=== PATIENT | female | born 1950 | race Caucasian/White ===

== ENCOUNTER 2018-12-22 16:30 | Emergency (ER) | payer BC, OTHER ==
[~2018-12-22] VITALS: Ht 162.6 cm; Wt 90.7 kg
[2018-12-22 16:38] VITALS: BP_SYST 115
[2018-12-22] MEDS ORDERED: METO-442 GT (16:46)
[2018-12-22] MEDS ORDERED: OMEP20CA10 GT (16:46)
[2018-12-22] MEDS ORDERED: HYG25 GT (16:46)
[2018-12-22] MEDS ORDERED: CHLO473M12 MM (16:46)
[2018-12-22] MEDS ORDERED: LIP40 GT (16:46)
[2018-12-22] MEDS ORDERED: CHLO118L TP (16:46)
[2018-12-22] MEDS ORDERED: ATEN50TA GT (16:46)
[2018-12-22] MEDS ORDERED: LACT1CAP7 GT (16:46)
[2018-12-22] MEDS ORDERED: LEVE500T53 GT (16:46)
[2018-12-22] MEDS ORDERED: ASA81 PO (16:46)
[2018-12-22 20:30] VITALS: BP_SYST 134
== END 2018-12-22 20:35 | disposition home or self-care (01) ==
LOC: SED 16:30
DX: S00.83XA Contusion of other part of head, initial encounter (principal); J45.909 Unspecified asthma, uncomplicated; I10 Essential (primary) hypertension; E78.5 Hyperlipidemia, unspecified; F41.9 Anxiety disorder, unspecified; Z86.73 Personal history of transient ischemic attack (TIA), and cerebral infarction without residual deficits; Z88.8 Allergy status to other drugs, medicaments and biological substances; Z79.899 Other long term (current) drug therapy; W19.XXXA Unspecified fall, initial encounter; Y93.89 Activity, other specified; Y92.89 Other specified places as the place of occurrence of the external cause; Y99.8 Other external cause status
CPT/HCPCS: 70450-TC; 72125-TC; 99284

== ENCOUNTER 2018-12-31 00:39 | Emergency (ER) | payer BC ==
[~2018-12-31] VITALS: Ht 162.6 cm; Wt 90.7 kg
[2018-12-31 00:39] VITALS: BP_SYST 120
[~2018-12-31 00:39] MED LIST: ASA81 GT; ATEN50TA GT; CHLO118L TP; CHLO473M12 MM; HYG25 GT; LACT1CAP7 GT; LEVE500T53 GT; LIP40 GT; METO-442 GT; OMEP20CA11 GT
[2018-12-31 01:59] LABS: BASOPHILS % (AUTO) 0.2 % (0.0-2.0); EOSINOPHILS % (AUTO) 0.3 % (0.0-4.0); HEMATOCRIT 30.7 % (36-48); HEMOGLOBIN 10.2 g/dL (12.0-16.0); LYMPHOCYTES # (AUTO) 1.1 K/uL (1.0-5.5); LYMPHOCYTES % (AUTO) 13.6 % (20.5-51.5); MEAN CORPUSCULAR HEMOGLOBIN 28 pg (27-31); MEAN CORPUSCULAR HGB CONC 33 % (32-36); MEAN CORPUSCULAR VOLUME 85 fL (79.0-98.0); MONOCYTES # (AUTO) 0.4 K/uL (0.0-1.0); MONOCYTES % (AUTO) 4.9 % (1.7-9.3); NEUTROPHILS # (AUTO) 6.3 K/uL (1.8-7.7); PLATELET COUNT (AUTO) 180 K/uL (130-430); RED BLOOD CELL COUNT(AUTO) 3.62 MIL/uL (4.2-6.2); RED CELL DISTRIBUTION WIDTH 15.4 % (9.0-15.0); WHITE BLOOD COUNT (AUTO) 7.8 K/uL (4.8-10.8)
[2018-12-31 02:19] LABS: CALCIUM 9.3 mg/dL (8.4-11.0); CREATININE 0.56 mg/dL (0.55-1.30); POTASSIUM 3.3 mmol/L (3.5-5.1)
[2018-12-31] MEDS ORDERED: ACET650S22 GT (02:19)
[2018-12-31 02:20] LABS: INR 1.1 (0.8-1.2); PROTHROMBIN TIME 11.2 SECS (9.5-12.5)
[2018-12-31] MEDS ORDERED: DOCU-144 GT (02:20)
[2018-12-31] MEDS ORDERED: UTI STAT GT (02:21)
[2018-12-31 02:33] LABS: THYROID STIMULATING HORMONE 0.37 uIu/mL (0.36-3.74); TOTAL BILIRUBIN 0.5 mg/dL (0.0-1.0)
[2018-12-31] MEDS ORDERED: MECLIZINE HCL 25 MG TABLET (ANITVERT) GT ONE (03:15)
[2018-12-31] MEDS ORDERED: METOCLOPRAMIDE HCL 10 MG/2 ML VIAL IVP ONE (03:15)
[2018-12-31 06:00] VITALS: BP_SYST 120
== END 2018-12-31 06:00 | disposition home or self-care (01) ==
LOC: SED 00:39
DX: R11.10 Vomiting, unspecified (principal); R42 Dizziness and giddiness; J45.909 Unspecified asthma, uncomplicated; I10 Essential (primary) hypertension; E78.5 Hyperlipidemia, unspecified; F41.9 Anxiety disorder, unspecified; Z88.8 Allergy status to other drugs, medicaments and biological substances; Z86.73 Personal history of transient ischemic attack (TIA), and cerebral infarction without residual deficits
CPT/HCPCS: 36415; 70450; 71045; 80053; 83605; 83690; 84443; 84484; 85025; 85610; 85730; 93005; 96374; 99284; J2765; J8597; 99283

== ENCOUNTER 2019-02-10 12:41 | Emergency (ER) | payer BC ==
[~2019-02-10] VITALS: Ht 157.5 cm; Wt 70.3 kg
[~2019-02-10 12:41] MED LIST changes: +ACET650S22 GT; -CHLO118L TP; +DOCU-144 GT; +UTI STAT GT
[2019-02-10 12:45] VITALS: BP_SYST 147
[2019-02-10 13:25] LABS: BILIRUBIN,URINE NEGATIVE (NEGATIVE); BLOOD, URINE NEGATIVE (NEGATIVE); CLARITY/URINE TURBID (CLEAR); COLOR,URINE YELLOW (YELLOW); GLUCOSE,URINE NEGATIVE (NEGATIVE); KETONES,URINE NEGATIVE (NEGATIVE); LEUKOCYTE ESTERASE ,URINE 2+ (NEGATIVE); NITRITE, URINE NEGATIVE (NEGATIVE); PROTEIN URINE NEGATIVE (NEGATIVE)
[2019-02-10 13:33] LABS: BACTERIA,URINE MANY /HPF (None Seen); RBC,URINE 0-3 /HPF (0-3)
[2019-02-10] MEDS ORDERED: NACL 0.9% 1,000 ML IV ONE (14:15)
[2019-02-10] MEDS ORDERED: PIPERACILLIN/TAZO 3.375 GM in NS 50 ML IV ONE (14:15)
[2019-02-10 14:20] LABS: BASOPHILS # (AUTO) 0.1 K/uL (0.0-0.2); BASOPHILS % (AUTO) 0.6 % (0.0-2.0); EOSINOPHILS # (AUTO) 0.3 K/uL (0.0-0.4); EOSINOPHILS % (AUTO) 4.4 % (0.0-4.0); HEMATOCRIT 32.4 % (36-48); HEMOGLOBIN 10.7 g/dL (12.0-16.0); LYMPHOCYTES # (AUTO) 1.1 K/uL (1.0-5.5); LYMPHOCYTES % (AUTO) 13.7 % (20.5-51.5); MEAN CORPUSCULAR HEMOGLOBIN 28 pg (27-31); MEAN CORPUSCULAR HGB CONC 33 % (32-36); MEAN CORPUSCULAR VOLUME 85 fL (79.0-98.0); MONOCYTES # (AUTO) 0.5 K/uL (0.0-1.0); MONOCYTES % (AUTO) 6.1 % (1.7-9.3); NEUTROPHILS % (AUTO) 75.2 % (40.0-70.0); PLATELET COUNT (AUTO) 175 K/uL (130-430); WHITE BLOOD COUNT (AUTO) 7.9 K/uL (4.8-10.8)
[2019-02-10 14:37] LABS: CALCIUM 8.4 mg/dL (8.4-11.0); CREATININE 0.63 mg/dL (0.55-1.30); POTASSIUM 3.9 mmol/L (3.5-5.1)
[2019-02-10 14:43] LABS: ALBUMIN 2.8 g/dL (3.4-4.8); TOTAL BILIRUBIN 0.3 mg/dL (0.0-1.0)
[2019-02-10 15:02] LABS: INR 1.1 (0.8-1.2); PROTHROMBIN TIME 10.9 SECS (9.5-12.5)
[2019-02-10 15:17] VITALS: BP_SYST 147
== END 2019-02-10 15:13 | disposition short-term general hospital (02) ==
LOC: SED 12:41
DX: I61.8 Other nontraumatic intracerebral hemorrhage (principal); N39.0 Urinary tract infection, site not specified; D64.9 Anemia, unspecified; J45.909 Unspecified asthma, uncomplicated; I10 Essential (primary) hypertension; F41.9 Anxiety disorder, unspecified; Z88.8 Allergy status to other drugs, medicaments and biological substances; Z79.82 Long term (current) use of aspirin; Z79.899 Other long term (current) drug therapy
CPT/HCPCS: 36415; 70450; 71045; 80053; 81000; 83605; 84484; 85025; 85610; 85730; 87040; 87086; 87186; 93005; 94640; 96365; 99291; 99292; J2543

== ENCOUNTER 2019-03-21 16:06 | Inpatient (IN) | payer BC, MEDICAID ==
[~2019-03-21] VITALS: Ht 162.6 cm; Wt 78.9 kg
[2019-03-21 16:20] VITALS: BP_SYST 144
--- NOTE | 2019-03-21 16:25 | NUR ---
Placed in room 1. Placed on monitoring tech, blood pressure machine and pulse oximeter. To gown for exam. Side rails up.
--- NOTE | 2019-03-21 16:26 | NUR ---
Patient brought in by ambulance from [facility] for bleeding trach. Trach bleed is controlled, ruptured vessel in right eye noted. Patient is nonverbal, bedbound, vent dependent.
--- NOTE | 2019-03-21 16:40 | NUR ---
PT CONNECTED TO VENT AT 1620 VIA SETTING AC 14 400 +6 28%, SETTING PROVIDED BY TRANSPORT TEAM. SPUTUM COLLECTED AND SENT TO LAB AT 1640 . ABDOULAYE BECKER MADE AWARE.
[2019-03-21 17:30] LABS: BASOPHILS % (AUTO) 0.6 % (0.0-2.0); EOSINOPHILS # (AUTO) 0.5 K/uL (0.0-0.4); EOSINOPHILS % (AUTO) 6.7 % (0.0-4.0); HEMATOCRIT 29.6 % (36-48); HEMOGLOBIN 9.8 g/dL (12.0-16.0); LYMPHOCYTES # (AUTO) 1.2 K/uL (1.0-5.5); LYMPHOCYTES % (AUTO) 16.3 % (20.5-51.5); MEAN CORPUSCULAR HEMOGLOBIN 28 pg (27-31); MEAN CORPUSCULAR HGB CONC 33 % (32-36); MEAN CORPUSCULAR VOLUME 85 fL (79.0-98.0); MONOCYTES # (AUTO) 0.5 K/uL (0.0-1.0); MONOCYTES % (AUTO) 7.2 % (1.7-9.3); NEUTROPHILS # (AUTO) 5.1 K/uL (1.8-7.7); NEUTROPHILS % (AUTO) 69.2 % (40.0-70.0); PLATELET COUNT (AUTO) 155 K/uL (130-430); RED CELL DISTRIBUTION WIDTH 16.3 % (9.0-15.0); WHITE BLOOD COUNT (AUTO) 7.4 K/uL (4.8-10.8)
[2019-03-21 17:43] LABS: CALCIUM 8.8 mg/dL (8.4-11.0); CREATININE 0.5 mg/dL (0.55-1.30); POTASSIUM 3.5 mmol/L (3.5-5.1)
[2019-03-21 17:45] LABS: PROTHROMBIN TIME 10.5 SECS (9.5-12.5)
[2019-03-21] MEDS ORDERED: ATOR20TA64 GT (17:49)
[2019-03-21] MEDS ORDERED: PRIM50TA27 GT (17:49)
[2019-03-21] MEDS ORDERED: LEVE1000 GT (17:49)
[2019-03-21] MEDS ORDERED: MODA100T53 PO (17:49)
[2019-03-21] MEDS ORDERED: LOSA25TA3 GT (17:49)
[2019-03-21] MEDS ORDERED: LABE100T5 GT (17:49)
--- NOTE | 2019-03-21 17:50 | NUR ---
Medication reconciliation completed with information provided by Christoph Pike. Any prior medication reconciliation on file was reviewed and corrected.
[2019-03-21 17:57] LABS: ALBUMIN 2.8 g/dL (3.4-4.8); TOTAL BILIRUBIN 0.1 mg/dL (0.0-1.0)
[2019-03-21] MEDS ORDERED: SODIUM CL 3% FOR INHALATION 15 ML VIAL.NEB INH ONE (18:00)
[2019-03-21 18:16] LABS: BILIRUBIN,URINE NEGATIVE (NEGATIVE); BLOOD, URINE NEGATIVE (NEGATIVE); CLARITY/URINE SL CLOUDY (CLEAR); COLOR,URINE YELLOW (YELLOW); GLUCOSE,URINE NEGATIVE (NEGATIVE); KETONES,URINE NEGATIVE (NEGATIVE); LEUKOCYTE ESTERASE ,URINE 3+ (NEGATIVE); NITRITE, URINE NEGATIVE (NEGATIVE); PROTEIN URINE NEGATIVE (NEGATIVE); UROBILINOGEN,URINE 0.2 (0.2-1.0)
[2019-03-21 18:33] LABS: BACTERIA,URINE MODERATE /HPF (None Seen); RBC,URINE 0-3 /HPF (0-3); WBC,URINE 50-80 /HPF (0-3)
--- NOTE | 2019-03-21 18:42 | NUR ---
Patient will be admitted to care of Dr. Bustillos. Admitted to ICU. No nurse available at this time. Belongings list completed. Complete and up to date summary report printed. SBAR report to be given at bedside with opportunity for questions.
--- NOTE | 2019-03-21 19:05 | NUR ---
Report given to ABDOULAYE Cardoza for continuation of care.
--- NOTE | 2019-03-21 20:46 | NUR ---
Pt is resting in bed, no acute distress noted at this time. Will continue to monitor.
--- NOTE | 2019-03-21 21:20 | NUR ---
Transfer to ICU via ACLS protocol. Licensed nurse present. IV present no signs or symptoms of infiltration.
[2019-03-21 22:00] VITALS: BP_SYST 120
[2019-03-21 22:16] VITALS: BP_SYST 149
[2019-03-21 22:35] VITALS: BP_SYST 120
--- NOTE | 2019-03-21 22:50 | NUR ---
DR. AYERS NOTIFIED [phone] Ayers know that patient was admitted to ICU Spoke with Cherry
[2019-03-21 23:00] VITALS: BP_SYST 117
[2019-03-22] VITALS: BP_SYST 94
[2019-03-22 01:00] VITALS: BP_SYST 94
--- NOTE | 2019-03-22 01:55 | NUR ---
TRANSFER NOTE PT TRANSFERRED TO TELEMETRY VIA BED IN STABLE CONDITION. NO BELONGINGS TO BE TRANSFERRED. REPORT GIVEN TO JEFF STANFORD. AND WILL ENDORSE ALL CARE.
--- NOTE | 2019-03-22 02:03 | NUR ---
TRANSFER TO [id number] Received pt and endorsement received from ICU nurse Chante. Pt is resting in bed with both eyes closed, with visible chest rise and fall with non-labored breathing noted. No moaning or grimacing. Pt on vent with setting, AC:14, TV:400, FiO2:28%, PEEP:6. No signs of acute distress or SOB noted. Safety precautions in place with 3 side rails up, wheels locked, bed alarm on and in lowest level. Will continue to monitor.
[2019-03-22] MEDS ORDERED: cefTRIAXone 1 GM IVPB PREMIX 50 ML IV ONE (02:22)
[2019-03-22] MEDS: cefTRIAXone 1 GM IVPB PREMIX 50 ML IV SCH (02:24)
--- NOTE | 2019-03-22 02:25 | NUR ---
FAMILY NOTIFIED OF TRANSFER TO TELE 112A SPOKE TO DAUGHTER, PABLO SERRATO [phone]
[2019-03-22 05:14] VITALS: BP_SYST 130
[2019-03-22 05:39] LABS: BASOPHILS % (AUTO) 0.5 % (0.0-2.0); EOSINOPHILS # (AUTO) 0.4 K/uL (0.0-0.4); EOSINOPHILS % (AUTO) 7.4 % (0.0-4.0); HEMATOCRIT 29.7 % (36-48); HEMOGLOBIN 9.8 g/dL (12.0-16.0); LYMPHOCYTES # (AUTO) 1.2 K/uL (1.0-5.5); LYMPHOCYTES % (AUTO) 20.4 % (20.5-51.5); MEAN CORPUSCULAR HEMOGLOBIN 28 pg (27-31); MEAN CORPUSCULAR HGB CONC 33 % (32-36); MEAN CORPUSCULAR VOLUME 85 fL (79.0-98.0); MONOCYTES # (AUTO) 0.5 K/uL (0.0-1.0); MONOCYTES % (AUTO) 7.8 % (1.7-9.3); NEUTROPHILS # (AUTO) 3.8 K/uL (1.8-7.7); NEUTROPHILS % (AUTO) 63.9 % (40.0-70.0); PLATELET COUNT (AUTO) 145 K/uL (130-430); RED BLOOD CELL COUNT(AUTO) 3.49 MIL/uL (4.2-6.2); RED CELL DISTRIBUTION WIDTH 16.5 % (9.0-15.0); WHITE BLOOD COUNT (AUTO) 5.9 K/uL (4.8-10.8)
[2019-03-22 06:02] LABS: ALBUMIN 2.8 g/dL (3.4-4.8); CALCIUM 8.1 mg/dL (8.4-11.0); CREATININE 0.43 mg/dL (0.55-1.30); POTASSIUM 3.2 mmol/L (3.5-5.1); TOTAL BILIRUBIN 0.3 mg/dL (0.0-1.0)
--- NOTE | 2019-03-22 06:40 | NUR ---
CLOSING NOTES Pt is resting in bed with both eyes closed, with visible chest rise and fall with non-labored breathing noted. No moaning or grimacing noted. IVF and G-tube are infusing well. No signs of acute distress or SOB noted. All needs attended throughout the shift. Safety precautions in place with 3 side rails up, wheels locked, bed alarm on and in lowest level. Call light with pt. Will endorse to day shift nurse.
--- NOTE | 2019-03-22 07:35 | NUR ---
OPENING NOTE Patient resting in the bed. No acute distress. HOB elevated. Trach intact to vent: AC=14, KY=838, FIO2=28%, PEEP=6. On GT feeding. Safety measure maintained. Call light within reached. Bed locked in low position, padded side rails up, bed alarm on. Will continue to monitor.
[2019-03-22 07:50] VITALS: BP_SYST 133
--- NOTE | 2019-03-22 09:05 | NUR ---
Nutrition Update Diego Scale 11 noted. Pt admitted for bleeding trach. Diet: Glucerna 1.5 at 30 ml/hr, Free Water Flush: 150 MLS Q6H via GT BMI: 29.9 kg/m2 RD to follow per nutrition care standards.
[2019-03-22] MEDS: MODAFINIL 100 MG TABLET (PROVIGIL) PO SCH ×2 (09:41→20:34)
[2019-03-22] MEDS: levETIRAcetam 500 MG TABLET GT SCH ×2 (09:41→20:34)
[2019-03-22] MEDS: LOSARTAN POTASSIUM 25 MG TABLET GT SCH (09:42)
[2019-03-22] MEDS: LABETALOL HCL 100 MG TABLET GT SCH ×2 (09:42→20:35)
[2019-03-22] MEDS ORDERED: ALBUTEROL SULFATE 0.083% 2.5 MG/3 ML VIAL.NEB INH PRN (10:15)
[2019-03-22] MEDS ORDERED: IPRATROPIUM BROM 0.5 MG/2.5 ML VIAL.NEB (ATROVENT) INH PRN (10:15)
--- NOTE | 2019-03-22 10:25 | NUR ---
Neuro consult called: for Dr. Solis, regarding seizures, ordered by dr. Bustillos, spoke with Carito.
[2019-03-22] MEDS: IPRATROPIUM BROM 0.5 MG/2.5 ML VIAL.NEB (ATROVENT) INH SCH ×4 (11:12→23:30)
[2019-03-22] MEDS: ALBUTEROL SULFATE 0.083% 2.5 MG/3 ML VIAL.NEB INH SCH ×4 (11:12→23:30)
--- NOTE | 2019-03-22 11:13 | NUR ---
K=3.2 Informed to Gui Andrews while he is in the unit with order received.
[2019-03-22] MEDS ORDERED: POTASSIUM CHLORIDE 20 MEQ/PKT PACKET PO ONE (11:15)
--- NOTE | 2019-03-22 11:44 | NUR ---
SEEN AND EXAMINED BY BRIT GOLDEN WITH ORDER RECEIVED.
[2019-03-22 12:00] VITALS: BP_SYST 102
--- NOTE | 2019-03-22 12:17 | NUR ---
EEG DONE AT BEDSIDE, TOLERATED WELL.
--- NOTE | 2019-03-22 14:40 | NUR ---
OFF UNIT FOR CT OF HEAD VIA BED IN STABLE CONDITION WITH PORTABLE HEART MONITOR AND OXYGEN. I AND RT WENT TOGETHER, RT BAGGING THE PATIENT VIA TRACH DURING THE TRANSPORT.
[2019-03-22 16:01] VITALS: BP_SYST 125
--- NOTE | 2019-03-22 16:50 | NUR ---
WOUND CARE DONE, PROCEDURE TOLERATED WELL.
--- NOTE | 2019-03-22 17:07 | NUR ---
WOUND EVALUATION: Wound Consult received from Dr. Bustillos. Thank you, Dr. Bustillos, for the consult. Patient received in a [place] Bed with an Atmos-Air 9000 mattress, awake, nonverbal, nonresponsive to verbal commands. Patient is unable to turn in bed independently. Diego Score is an 11. Past medical history: Intracranial Hemorrhage about a year ago, Tracheostomy, PEG placement, Hypertension, Hypercholesterolemia, Asthma; Seizures; Dysphagia; Anxiety; Chronic Respiratory Failure, ventilator dependent, Craniotomy. Recent Labs: WBC 5.9, RBC 3.49, hemoglobin 9.8, hematocrit 29.7, potassium 3.2, BUN 20, creatinine 0.43, GFR 154, calcium 8.1, albumin 2.8. Microbiology: Endotracheal culture results in progress. Blood culture results 2 in progress. Urine culture results in progress. MRSA screen results in progress. Intrinsic factors that delay wound healing: Asthma, Chronic Respiratory Failure, ventilator dependent, Hypoalbuminemia. Extrinsic factors that delay wound healing: Immobility. Wound Assessment: 1. Sacral area: Healing Stage III pressure ulcer, present on admission. Wound bed has 70% pink tissue, 30% yellow tissue. No odor, no drainage. Periwound intact. Surrounding tissue has dark discolored skin and scar tissue. Wound measures 1.8 cm x 3.0 cm. Recommend: Cleanse wound with normal saline. Apply moisture barrier cream to tommy-wound. Apply Venelex ointment to wound bed. Cover with Sacral foam dressing. Perform wound care daily, and as needed for dressing soiling or dislodgement. 2. Right Nose, Lateral Aspect ([place]): Dry excoriation, present on admission. Site has 100% red scab. No odor, no drainage. Periwound intact. Site measures 1.9 cm x 1.0 cm. Recommend: Cleanse wound with normal saline. Apply Hydraguard barrier cream to site. Perform site care BID. Also recommend: Reposition patient every 2 hours with pillow support and off-load pressure areas with pillows for pressure re-distribution. Offload, elevate and float bilateral heels with pillows. Perform skin care and monitor skin integrity Q shift. Use moisture barrier cream on buttocks and other moisture susceptible areas QID and as needed for soiling. Place patient on a low air-loss mattress.
--- NOTE | 2019-03-22 18:00 | NUR ---
SEEN AND EXAMINED BY ELMER GARZA.
[2019-03-22] MEDS ORDERED: BALSAM PERU/CASTOR OIL 60 GM OINT...G. TP ONE (18:15)
--- NOTE | 2019-03-22 18:50 | NUR ---
CLOSING NOTE Patient resting in the bed. No acute distress. HOB elevated. Trach intact to vent SIMV as ordered. On GT feeding, tolerated well. All need met. No seizure activity note during shift. Safety measure maintained. Call light within reached. Bed locked in low position, padded side rails up, bed alarm on. Will endorse to night nurse.
--- NOTE | 2019-03-22 19:35 | NUR ---
ROUNDS PATIENT RESTING COMFORTABLY IN BED, VITALS STABLE, ON TRACH TO VENT, NO SIGNS OF ANY PAIN AND DISCOMFORT NOTED. ASSESSMENT DONE AND DOCUEMNTED. SEE FLOWSHEET. NEEDS ATTENDED TO. WILL CONTINUE TO MONITOR.
[2019-03-22] MEDS: PRIMIDONE 50 MG TABLET GT SCH (20:35)
[2019-03-22] MEDS: ATORVASTATIN 20 MG TABLET GT SCH (20:35)
--- NOTE | 2019-03-22 21:14 | NUR ---
MEDICATIONS DUE MEDICATIONS GIVEN ORDERED, TOLERATED WELL. WILL CONTINUE TO MONITOR.
--- NOTE | 2019-03-23 00:25 | NUR ---
PATIENT RESTING: Patient resting quietly. No acute distress noted. Vital signs within normal range.
[2019-03-23] MEDS: cefTRIAXone 1 GM IVPB PREMIX 50 ML IV SCH ×2 (00:46→23:37)
[2019-03-23 01:56] VITALS: BP_SYST 151
--- NOTE | 2019-03-23 02:13 | NUR ---
ROUNDS PATIENT ASLEEP, RESPIRATIONS EVEN AND UNLABORED, WILL CONTINUE TO MONITOR.
[2019-03-23] MEDS: ALBUTEROL SULFATE 0.083% 2.5 MG/3 ML VIAL.NEB INH SCH ×5 (03:25→20:02)
[2019-03-23] MEDS: IPRATROPIUM BROM 0.5 MG/2.5 ML VIAL.NEB (ATROVENT) INH SCH ×5 (03:25→20:01)
--- NOTE | 2019-03-23 04:12 | NUR ---
PATIENT RESTING: Patient resting quietly. No acute distress noted. Vital signs within normal range.
--- NOTE | 2019-03-23 06:25 | NUR ---
CLOSING NOTES PATIENT RESTING COMFORTABLY AT THIS TIME, VITALS STABLE, NO PAIN AND DISCOMFORT NOTED AT THIS TIME. ALL NEEDS ATTENDED TO. SAFETY MEASURES MAINTAINED. CALL LIGHT PLACED WITHIN REACH.
--- NOTE | 2019-03-23 07:28 | NUR ---
OPENING NOTE Patient resting in the bed. No acute distress. Trach intact to SIMV 8, VT 400, PS 10 FIO2 28% PEEP 5. HOB elevated. On GT feeding of Glucerna 1.5 at 30ml/hr. SCD applied. Safety measure maintained. Bed locked in low position, padded side rails up, bed alarm on. Call light within reached. Will continue to monitor.
[2019-03-23 07:50] VITALS: BP_SYST 145
[2019-03-23 08:03] LABS: CALCIUM 7.8 mg/dL (8.4-11.0); CREATININE 0.54 mg/dL (0.55-1.30)
[2019-03-23] MEDS ORDERED: BALSAM PERU/CASTOR OIL 60 GM OINT...G. TP SCH (09:00)
[2019-03-23] MEDS: levETIRAcetam 500 MG TABLET GT SCH ×2 (09:18→21:56)
[2019-03-23] MEDS: LABETALOL HCL 100 MG TABLET GT SCH ×2 (09:18→21:58)
[2019-03-23] MEDS: LOSARTAN POTASSIUM 25 MG TABLET GT SCH (09:18)
[2019-03-23] MEDS: MODAFINIL 100 MG TABLET (PROVIGIL) PO SCH ×2 (09:18→21:56)
--- NOTE | 2019-03-23 09:53 | NUR ---
SEEN AND EXAMINED BY JAZLYN SMITH.
--- NOTE | 2019-03-23 12:17 | NUR ---
ROUND Patient resting in the bed. No acute distress. HOB elevated. Trach intact to vent. GT intact, patent, continue on GT feeding, tolerated well. Safety measure maintained. Bed locked in low position, padded side rails up, bed alarm on. Call light within reached. Continue to monitor.
[2019-03-23 12:42] VITALS: BP_SYST 124
--- NOTE | 2019-03-23 14:15 | NUR ---
ORAL CARE Patient resting in the bed. No acute distress. HOB elevated all the time. Trach intact to vent. Oral care and suction done with thin white moderate amount of secretion. HOB elevated. GT intact, patent, no residual, GT feeding tolerated well. Turned and repositioned the patient. Safety measure maintained. Bed locked in low position, padded side rails up, bed alarm on. Call light within reached. Continue to monitor.
--- NOTE | 2019-03-23 15:30 | NUR ---
Dietitian Recommendations * Recommend Glucerna 1.5 at 45 ml/hr, Bhavik BID, Prosource daily, Free Water Flush: 200 ml Q6h via GT Provides: 1840 kcal/day, 109 gm protein/day, and 1620 ml free water/day Meets: 101% of lower end of estimated caloric needs and 118% of upper end of estimated protein needs LP, RD Please refer to Nutrition Assessment for details. Addendum: 03/23/19 at [address] Amended: Links added.
[2019-03-23 16:42] VITALS: BP_SYST 132
[2019-03-23] MEDS ORDERED: THORAZINE (chlorproMAZINE) 25 MG TAB PO PRN (17:15)
--- NOTE | 2019-03-23 18:52 | NUR ---
CLOSING NOTE Patient resting in the bed. No acute distress. HOB elevated all the time. Trach intact to vent SIMV as ordered, tolerated well. On GT feeding of Glucerna 1.5 at 45ml/hr, tolerated well. All need met. No seizure activity note during shift. Safety measure maintained. Call light within reached. Bed locked in low position, padded side rails up, bed alarm on. Will endorse to night nurse.
--- NOTE | 2019-03-23 19:45 | NUR ---
OPENING NOTES Received bedside report from ABDOULAYE Cordero. Patient is awake, alert, oriented x 3. Patient has an IV on his left AC 18g, patent and benign, no s/s of infiltration/infection noted. Educated patient on his plan of care, call light system, and fall/safety precautions. Patient stated understanding. Bed is locked, armed, and at lowest position. Will continue to monitor. Addendum: 03/24/19 at 0523 by Moses Currie RN DISREGARD
--- NOTE | 2019-03-23 19:45 | NUR ---
OPENING NOTES Received notes from morning shift RN. Patient is resting in bed, eyes closed, on mechanical ventilation, breathing evenly and nonlabored. Patient has gt feeding running, patient is tolerating it well. Patient has an IV on right AC 20g SL. Bed is locked, armed, and at lowest position. Educated patient economics consultant light system, plan of care, patient is unable to state understanding due to being nonverbal. Fall/safety/aspiration/respiratory precautions. Will continue to monitor.
[2019-03-23 20:28] VITALS: BP_SYST 113
--- NOTE | 2019-03-23 20:39 | NUR ---
MEDICATIONS/ROUNDS Patient is resting in bed, awake, alert, oriented x 3, breathing is even and nonlabored. Vital signs stable, educated patient on his medications, patient stated understanding. Administered medications, patient tolerated them well. No other needs at this time. Fall/safety precautions. Addendum: 03/24/19 at 0524 by Moses Currie RN DISREGARD
[2019-03-23] MEDS: PRIMIDONE 50 MG TABLET GT SCH (21:55)
[2019-03-23] MEDS: ATORVASTATIN 20 MG TABLET GT SCH (21:56)
--- NOTE | 2019-03-23 21:56 | NUR ---
MEDICATIONS Patient is resting in bed, eyes closed, breathing evenly and nonlabored. Educated patient on medications, patient unable to state understanding due to being nonverbal. Administered medications, patient tolerated it well. No s/s of distress at this time. No other needs at this time. Fall/safety/seizure/aspiration/respiratory precautions.
--- NOTE | 2019-03-23 23:37 | NUR ---
MEDICATIONS Patient is resting in bed, eyes closed, breathing evenly and nonlabored. Educated patient on medications, patient unable to state understanding due to being nonverbal. Administered medications, patient tolerated it well. GT feeding replaced, patient is tolerating it well. No s/s of distress at this time. No other needs at this time. Fall/safety/seizure/aspiration/respiratory precautions.
[2019-03-24 00:08] VITALS: BP_SYST 130
[2019-03-24] MEDS: IPRATROPIUM BROM 0.5 MG/2.5 ML VIAL.NEB (ATROVENT) INH SCH ×4 (00:18→11:14)
[2019-03-24] MEDS: ALBUTEROL SULFATE 0.083% 2.5 MG/3 ML VIAL.NEB INH SCH ×4 (00:18→11:14)
--- NOTE | 2019-03-24 01:30 | NUR ---
ROUNDS Patient is resting in bed, eyes closed, breathing evenly and nonlabored. No s/s of distress at this time. No other needs at this time. Fall/safety/seizure/aspiration/respiratory precautions.
--- NOTE | 2019-03-24 03:30 | NUR ---
ROUNDS Patient is resting in bed, eyes closed, breathing evenly and nonlabored. No s/s of distress at this time. No other needs at this time. Fall/safety/seizure/aspiration/respiratory precautions. Will continue to monitor.
--- NOTE | 2019-03-24 06:23 | NUR ---
CLOSING NOTES Patient is resting in bed, eyes closed, breathing evenly and nonlabored. No s/s of distress at this time. No other needs at this time. Will endorse care to morning shift RN. Fall/safety/seizure/aspiration/respiratory precautions.
--- NOTE | 2019-03-24 07:30 | NUR ---
am rounds Patient is asleep. On mechanical ventilator , with portex trach tube size 8. Breathing even and nonlabored. Patient has gt feeding of Glucerna 45 cc,no gastric residual noted. aspiration precaution maintained. No tracheal bleeding noted.
[2019-03-24 08:29] VITALS: BP_SYST 128
[2019-03-24] MEDS: levETIRAcetam 500 MG TABLET GT SCH (09:32)
[2019-03-24] MEDS: MODAFINIL 100 MG TABLET (PROVIGIL) PO SCH (09:32)
[2019-03-24] MEDS: LOSARTAN POTASSIUM 25 MG TABLET GT SCH (09:33)
[2019-03-24] MEDS: LABETALOL HCL 100 MG TABLET GT SCH (09:33)
[2019-03-24 11:14] VITALS: BP_SYST 126
--- NOTE | 2019-03-24 11:30 | NUR ---
Rounds: Suctioned moderate amount of nolasco/beige oral secretions.
[2019-03-24 12:48] VITALS: BP_SYST 126
[2019-03-24 12:54] VITALS: BP_SYST 156
--- NOTE | 2019-03-24 14:09 | NUR ---
Spoke with HCP Leta HEARD. Bed arranged at [facility] subacute unit. Call [phone] for report, ask for subacute unit. Transport: 1830 to 1900 with [facility]. RT and Nurse to arrive with ambulance.
[2019-03-24 17:23] VITALS: BP_SYST 156
--- NOTE | 2019-03-24 17:41 | NUR ---
fAMILY NOTIFICATION: Informed Yolande Alston (daughter) about the discharge. Questions and concerns addressed. Agreeable with the transfer.
--- NOTE | 2019-03-24 17:42 | NUR ---
Transfer Report: Report given to ABDOULAYE ch.
--- NOTE | 2019-03-24 18:54 | NUR ---
DISCHARGE: Discharged to [facility] with [facility] ambulance.
== END 2019-03-24 18:43 | DRG 208 ==
LOC: SED 16:06 → SIC 18:38 → STU 03-22 02:01
PROVIDERS: ADMIT Internal Medicine Hospice and Palliative Medicine; ATTEND Internal Medicine Hospice and Palliative Medicine
PROC: 5A1945Z Respiratory Ventilation, 24-96 Consecutive Hours (ICD-10-PCS; principal; 2019-03-21)
DX: J95.01 Hemorrhage from tracheostomy stoma (principal); J96.20 Acute and chronic respiratory failure, unspecified whether with hypoxia or hypercapnia; R40.2343 Coma scale, best motor response, flexion withdrawal, at hospital admission; N39.0 Urinary tract infection, site not specified; Z99.11 Dependence on respirator [ventilator] status; E78.00 Pure hypercholesterolemia, unspecified; I10 Essential (primary) hypertension; J45.909 Unspecified asthma, uncomplicated; D64.9 Anemia, unspecified; F41.9 Anxiety disorder, unspecified; E78.5 Hyperlipidemia, unspecified; Y83.8 Other surgical procedures as the cause of abnormal reaction of the patient, or of later complication, without mention of misadventure at the time of the procedure; Y82.8 Other medical devices associated with adverse incidents; G40.909 Epilepsy, unspecified, not intractable, without status epilepticus; Z86.73 Personal history of transient ischemic attack (TIA), and cerebral infarction without residual deficits; Z98.2 Presence of cerebrospinal fluid drainage device; Z88.8 Allergy status to other drugs, medicaments and biological substances; Z79.899 Other long term (current) drug therapy
CPT/HCPCS: 36415; 70450-TC; 71045; 80048; 80053; 81000-TC; 83605; 84484; 85025; 85610-TC; 85730-TC; 87040-TC; 87070-TC; 87081; 87086; 87186-TC; 87205-TC; 93005; 94002; 94003; 94640; 94760; 95816; 99285; G0378; J0696; J7131; J7613; Q0161